=== PATIENT | female | born 1950 | race Caucasian/White ===

== ENCOUNTER 2024-07-21 11:28 | Day surgery (SDC) | payer OTHER ==
[~2024-07-21] VITALS: Ht 160 cm; Wt 65.7 kg
[~2024-07-21 11:28] MED LIST: ASPI81CH PO; CALCA500CH PO; CALCAVITDA PO; CRUTCH3 USE; ENAL5 PO; ESTRTP VAG; FISH1000 PO; GLUC500 PO; HYDR1TAB94 PO; Hair, Skin & N1 EACH PO; Lactated Ringer's 1,000 ML IV ONE; MULVIT PO; OXAYDO5 M1 PO; PROMETHAZINE12.5 M1 PO; SULTRIDS PO; Vitamin B Comple1 EA PO; propofoL 50 ML IV ONE
[2024-07-21] MEDS ORDERED: Lactated Ringer's 1,000 ML IV ONE (13:13)
[2024-07-21 14:31] VITALS: BP 124/76
== END 2024-07-21 14:15 | disposition home or self-care (01) ==
LOC: ORSCSDS 11:28
PROVIDERS: Surgery
PROC: 0DBK8ZX Excision of Ascending Colon, Via Natural or Artificial Opening Endoscopic, Diagnostic (ICD-10-PCS; principal; 2024-07-21 13:00)
PROC: 0DBN8ZX Excision of Sigmoid Colon, Via Natural or Artificial Opening Endoscopic, Diagnostic (ICD-10-PCS; principal; 2024-07-21 13:00)
PROC: 0DBM8ZX Excision of Descending Colon, Via Natural or Artificial Opening Endoscopic, Diagnostic (ICD-10-PCS; principal; 2024-07-21 13:00)
DX: Z12.11 Encounter for screening for malignant neoplasm of colon (principal); D12.2 Benign neoplasm of ascending colon; K63.5 Polyp of colon; K64.8 Other hemorrhoids; K57.30 Diverticulosis of large intestine without perforation or abscess without bleeding; Z79.899 Other long term (current) drug therapy
CPT/HCPCS: 88305; J2704; J7120